=== PATIENT | female | born 1995 | race Caucasian/White ===

== ENCOUNTER 2020-03-31 06:30 | Day surgery (SDC) | payer MEDICAID, SELFPAY ==
[2020-03-31] MEDS ORDERED: SIMETHICONE 40 MG/0.6 ML ML ONE (07:03)
[2020-03-31 07:31] LABS: HCG,QUAL RESULT NEGATIVE (NEGATIVE)
[2020-03-31] MEDS: fentaNYL CITRATE/PF 100 MCG/2 ML AMP ONE ×3 (08:09→08:13)
[2020-03-31] MEDS: MIDAZOLAM HCL 5 MG/5 ML VIAL ONE ×4 (08:09→08:15)
[2020-03-31] MEDS ORDERED: DIPHENHYDRAMINE INJ 50 MG/ML VIAL ONE (08:49)
[2020-03-31 12:34] VITALS: BP_SYST 109
== END 2020-03-31 12:33 | disposition still patient (30) ==
LOC: SMU 06:30 → SDS 06:30
PROVIDERS: ATTEND Internal Medicine
DX: R10.13 Epigastric pain (principal); K29.70 Gastritis, unspecified, without bleeding; Z11.59 Encounter for screening for other viral diseases
CPT/HCPCS: 36415; 43239; 84703; 87081; 88305; 88312; 88313; G0378; J1200; J2250; J3010; J7030; U0003